=== PATIENT | female | born 1980 | race African-American/Black ===

== ENCOUNTER 2019-09-25 08:46 | Emergency (ER) | payer SELFPAY ==
[~2019-09-25] VITALS: Ht 167.6 cm; Wt 86.5 kg
[2019-09-25 08:46] VITALS: BP 156/65
--- NOTE | 2019-09-25 09:05 | PHYS DOC ---
Adult General Chief Complaint Chief Complaint: ANXIETY/PANIC ATTACK HPI HPI Patient is a 39-year-old female who presents with complaint of anxiety that started this morning at about 4:30 to 5 AM. She states that she has a long history of anxiety and has been on lorazepam in the past. Patient does admit to some chest tightness but states that she feels like that is because of how she is breathing in the anxiety. She denies any actual pain. Patient denies any suicidal or homicidal ideations. She denies any specific inciting factors.[] Review of Systems Review of Systems Constitutional: Denies fever or chills [] Respiratory: Denies cough or shortness of breath [] Cardiovascular: No additional information not addressed in HPI [] Integument: Denies rash or skin lesions [] Neurologic: Denies headache, focal weakness or sensory changes [] Psychiatric: Complains of anxiety. Denies suicidal and homicidal ideations.[] Physical Exam Physical Exam Constitutional: Well developed, well nourished, no acute distress, non-toxic appearance. [] Cardiovascular: Regular rate and rhythm[] Lungs & Thorax: Bilateral breath sounds clear to auscultation [] Neurologic: Alert and oriented X 3, no focal deficits noted. [] Psychologic: Appears anxious and tearful. Denies suicidal ideation. [] EKG EKG [] Radiology/Procedures Radiology/Procedures [] Course & Med Decision Making Course & Med Decision Making Pertinent Labs and Imaging studies reviewed. (See chart for details) [] Dragon Disclaimer Dragon Disclaimer This electronic medical record was generated, in whole or in part, using a voice recognition dictation system. Departure Departure: Impression: Primary Impression: Anxiety Disposition: 07 AGAINST MEDICAL ADVICE (a medical screening examination has been performed and patient elects not to pay for treatment) Condition: STABLE Referrals: PCP,UNKNOWN (PCP) PINEDA CLAY Jr. DO Sep 25, 2019 09:05
== END 2019-09-25 09:23 | disposition left against medical advice (07) ==
LOC: ER 08:46
DX: F41.9 Anxiety disorder, unspecified (principal)
CPT/HCPCS: 99284

== ENCOUNTER 2020-07-12 08:36 | Emergency (ER) | payer SELFPAY ==
[~2020-07-12] VITALS: Ht 167.6 cm; Wt 95.4 kg
[2020-07-12 08:36] VITALS: BP 102/75
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
--- NOTE | 2020-07-12 09:35 | RAD ---
PROCEDURE: FOOT LEFT 3V, KNEE LEFT 3V STUDY DATE: 07/12/2020 CLINICAL INDICATION / HISTORY: Left knee pain after injury. TECHNIQUE: AP, lateral, and oblique views of the left knee. COMPARISON: None FINDINGS: The osseous structures are intact. The articular surfaces are smooth. The joint space is maintained. No intra-articular loose bodies. The alignment is within normal limits. The soft tissues are unremarkable. No obvious joint effusion. No radio-opaque foreign bodies are identified. IMPRESSION: No fracture or dislocation is identified. PROCEDURE: FOOT LEFT 3V, KNEE LEFT 3V STUDY DATE: 07/12/2020 CLINICAL INDICATION / HISTORY: Reason: injury / Spl. Instructions: / History: . TECHNIQUE: AP, lateral and oblique views of the left foot. COMPARISON: None FINDINGS: No fracture or dislocation is identified. The bone density is normal. There is some irregularity to the metadiaphyseal junctions of the proximal second through fourth metatarsals of uncertain significance. They could represent healing responses from prior fracture. The joint space widths are maintained, and there are no erosions to suggest an inflammatory arthropathy. There is soft tissue swelling over the dorsum of the left forefoot at the metatarsal mid shafts. No other soft tissue abnormality is seen. IMPRESSION: Soft tissue swelling on the dorsum of the left forefoot of uncertain etiology. Correlate with clinical history. There is mild irregularity of the proximal metadiaphyseal junction of the second through fourth digits that could reflect sequela of old injury. Correlate with clinical exam. If indicated, further imaging by CT MRI could be pursued. Alignment is anatomic. Electronically signed by: Yony Carlson MD (07/12/2020 9:33 AM) [id number]
[2020-07-12 10:14] LABS: U PREG PATIENT NEGATIVE (NEG)
--- NOTE | 2020-07-12 10:54 | RAD ---
CT scan of the left foot without contrast 07/12/2020 CLINICAL HISTORY: Left foot pain and swelling post injury. TECHNIQUE: Unenhanced, contiguous, 0.625 mm axial sections were obtained through the left foot. 2 mm reconstructed sagittal, axial and coronal images were obtained. One or more of the following individualized dose reduction techniques were utilized for this study: 1. Automated exposure control. 2. Adjustment of the mA and/or kV according to patient size. 3. Use of iterative reconstruction technique. FINDINGS: Comparison is made to radiographs of the left foot from earlier today. Acute comminuted fractures are seen involving the proximal metaphysis of the left second metatarsal and left third metatarsal. The fracture of the left second metatarsal extends to the second MTP joint. No fracture step-off is seen. The alignment of the fracture fragments is near-anatomic. There is associated soft tissue swelling, dorsally. A small bony density is seen on the dorsal surface of the proximal metaphysis of the left first metatarsal may represent an old fracture. No additional acute fracture is seen. IMPRESSION: Acute comminuted fractures are seen involving the left second and third proximal metatarsals as discussed above. Electronically signed by: Saw Gonzales MD (07/12/2020 10:51 AM) [id number]
[2020-07-12] MEDS ORDERED: HYDR-3165 PO (11:26)
== END 2020-07-12 12:11 | disposition home or self-care (01) ==
LOC: ER 08:36
DX: S92.322A Displaced fracture of second metatarsal bone, left foot, initial encounter for closed fracture (principal); S92.332A Displaced fracture of third metatarsal bone, left foot, initial encounter for closed fracture; X58.XXXA Exposure to other specified factors, initial encounter; Y93.9 Activity, unspecified; Y92.89 Other specified places as the place of occurrence of the external cause; Y99.8 Other external cause status
CPT/HCPCS: 29515; 73562; 73630; 73700; 81025; 96372; 99285; J3010

== ENCOUNTER 2020-09-25 15:13 | Emergency (ER) | payer SELFPAY ==
[~2020-09-25] VITALS: Ht 167.6 cm; Wt 90.9 kg
[~2020-09-25 15:13] MED LIST: HYDR-3165 PO
--- NOTE | 2020-09-25 15:58 | PHYS DOC ---
Past History Past Medical History: Anxiety, Depression (SUELLEN GARCIA APRN) Past Surgical History: (SUELLEN GARCIA APRN) Alcohol Use: Occasionally Drug Use: None (SUELLEN GARCIA APRN) Adult General Chief Complaint Chief Complaint: ALCOHOL INTOXICATION HPI HPI Patient is a 40-year-old female presents emergency department transported by EMS reporting that she has been unable to sleep for the past 4 days, has been hearing voices in her head to wake up when she does finally doze off stating the voices tell me to wake up someone is trying to kill me. Patient states she awakens and is very scared that there is someone trying to kill her however her fianc that she lives with reassures her there is nobody in the house are in the apartment complex where they live that is trying to kill her. The patient states she does not see anybody that is trying to kill her, denies visual hallucinations, but reports that she does hear voices in her head telling her not to sleep because someone is trying to kill her. Patient states that she has a history of suicidal ideation homicidal ideation but is not suicidal today. Patient states that she is supposed to take Topamax and Wellbutrin for her depression, anxiety, and sleep disorders, however has not taken them for several months. Patient states that she has been in rehab several times for her alcoholism and her depression stating her last visit was at [facility] unit several months ago. Patient states that she drinks vodka as her alcohol of choice, patient states that she last drank 2 shots last night at midnight. Patient denies any recent fever or chills, denies chest pains, denies chest palpitations, denies nausea, vomiting, diarrhea. Patient denies any other health illnesses or physical complaints. Patient denies being a cigarette smoker, denies illicit drug use, states the only thing she does is drink vodka. (SUELLEN GARCIA APRN) Review of Systems Review of Systems 14 body systems of review of systems have been reviewed. See HPI for pertinent positives and negative responses, otherwise all other systems are negative, nonpertinent or noncontributory. (SUELLEN GARCIA APRN) Current Medications Current Medications Current Medications Medications (Trade) Dose Ordered Sig/Annalisa Start Time Stop Time Status Last Admin Dose Admin Lorazepam (Ativan Inj) 1 mg 1X ONCE 09/25/20 15:45 09/25/20 15:46 UNV 09/25/20 15:57 1 MG Multivitamins/ Minerals 10 ml/ Folic Acid 1 mg/ Thiamine HCl 100 mg/Lactated Ringer's 1,011.3 ml @ 1,011.3 mls/hr 1X ONCE 09/25/20 15:45 09/25/20 16:44 UNV (SUELLEN GARCIA APRN) Allergies Allergies Allergies Coded Allergies Type Severity Reaction Last Updated Verified No Known Drug Allergies 09/25/19 No (SUELLEN GARCIA APRN) Physical Exam Physical Exam Constitutional: Well developed, well nourished, no acute distress, non-toxic appearance. Patient is tearful during exam. Patient remained calm and cooperative during physical examination. HENT: Normocephalic, atraumatic, bilateral external ears normal, oropharynx moist, no oral exudates, nose normal. [] Eyes: PERRLA, EOMI, conjunctiva erythematous, no discharge. [] Neck: Normal range of motion, no tenderness, supple, no stridor. [] Cardiovascular:Heart rate regular rhythm, no murmur [] Lungs & Thorax: Bilateral breath sounds clear to auscultation [] Abdomen: Bowel sounds normal, soft, no tenderness, no masses, no pulsatile masses. [] Skin: Warm, dry, no erythema, no rash. [] Back: No tenderness, no CVA tenderness. [] Extremities: No tenderness, no cyanosis, no clubbing, ROM intact, no edema. [] Neurologic: Alert and oriented X 3, normal motor function, normal sensory function, no focal deficits noted. [] Psychologic: Affect flat, normal mood, admits to auditory hallucinations, denies visual hallucinations. (SUELLEN GARCIA APRN) Current Patient Data Vital Signs Vital Signs Date Time Temp Pulse Resp B/P (MAP) Pulse Ox O2 Delivery O2 Flow Rate FiO2 09/25/20 15:36 98.4 125 24 129/50 (76) 96 Room Air Lab Results Laboratory Tests Test 09/25/20 15:48 09/25/20 15:58 White Blood Count 4.7 x10^3/uL Red Blood Count 4.50 x10^6/uL Hemoglobin 13.0 g/dL Hematocrit 39.3 % Mean Corpuscular Volume 87 fL Mean Corpuscular Hemoglobin 29 pg Mean Corpuscular Hemoglobin Concent 33 g/dL Red Cell Distribution Width 14.3 % Platelet Count 346 x10^3/uL Neutrophils (%) (Auto) 42 % Lymphocytes (%) (Auto) 49 % Monocytes (%) (Auto) 6 % Eosinophils (%) (Auto) 2 % Basophils (%) (Auto) 1 % Neutrophils # (Auto) 2.0 x10^3uL Lymphocytes # (Auto) 2.3 x10^3/uL Monocytes # (Auto) 0.3 x10^3/uL Eosinophils # (Auto) 0.1 x10^3/uL Basophils # (Auto) 0.0 x10^3/uL Sodium Level 139 mmol/L Potassium Level 4.0 mmol/L Chloride Level 103 mmol/L Carbon Dioxide Level 25 mmol/L Anion Gap 11 Blood Urea Nitrogen 12 mg/dL Creatinine 0.6 mg/dL Estimated GFR (Cockcroft-Gault) 133.3 BUN/Creatinine Ratio 20 Glucose Level 110 mg/dL Calcium Level 8.6 mg/dL Total Bilirubin 0.4 mg/dL Aspartate Amino Transf (AST/SGOT) 12 U/L Alanine Aminotransferase (ALT/SGPT) 36 U/L Alkaline Phosphatase 83 U/L Ammonia 22 mcmol/L Total Protein 7.4 g/dL Albumin 3.7 g/dL Albumin/Globulin Ratio 1.0 Amylase Level 47 U/L Salicylates Level < 2.8 mg/dL Salicylate Last Dose Date Unknown Salicylate Last Dose Time Unknown Acetaminophen Level < 2 mcg/mL Acetaminophen Last Dose Date Unknown Acetaminophen Last Dose Time Unknown Ethyl Alcohol Level 274 mg/dL Urine Collection Type Unknown Urine Color Yellow Urine Clarity Cloudy Urine pH 5.5 Urine Specific Henderson 1.025 Urine Protein Neg Urine Glucose (UA) Neg mg/dL Urine Ketones (Stick) Neg mg/dL Urine Blood Small Urine Nitrite Neg Urine Bilirubin Neg Urine Urobilinogen Dipstick 0.2 mg/dL Urine Leukocyte Esterase Neg Urine RBC Occ /HPF Urine WBC 0 /HPF Urine Squamous Epithelial Cells Occ /LPF Urine Amorphous Sediment Present /HPF Urine Bacteria 0 /HPF Urine Mucus Slight /LPF Urine Opiates Screen Neg Urine Methadone Screen Neg Urine Barbiturates Neg Urine Phencyclidine Screen Neg Urine Amphetamine/Methamphetamine Neg Urine Benzodiazepines Screen Neg Urine Cocaine Screen Neg Urine Cannabinoids Screen Neg Urine Ethyl Alcohol Pos Current Medications Medications (Trade) Dose Ordered Sig/Annalisa Route PRN Reason Start Time Stop Time Status Last Admin Dose Admin Folic Acid 1 mg/ Thiamine HCl 100 mg/Lactated Ringer's 1,011.3 ml @ 1,011.3 mls/hr 1X ONCE IV 09/25/20 16:15 09/25/20 17:14 DC 09/25/20 16:30 Lorazepam (Ativan Inj) 1 mg 1X ONCE IVP 09/25/20 15:45 09/25/20 16:05 DC 09/25/20 15:57 Multivitamins/ Calcium (Thera-M Plus) 1 tab 1X ONCE PO 09/25/20 16:15 09/25/20 16:16 DC 09/25/20 16:28 Laboratory Tests Test 09/25/20 15:48 09/25/20 15:58 White Blood Count 4.7 x10^3/uL Red Blood Count 4.50 x10^6/uL Hemoglobin 13.0 g/dL Hematocrit 39.3 % Mean Corpuscular Volume 87 fL Mean Corpuscular Hemoglobin 29 pg Mean Corpuscular Hemoglobin Concent 33 g/dL Red Cell Distribution Width 14.3 % Platelet Count 346 x10^3/uL Neutrophils (%) (Auto) 42 % Lymphocytes (%) (Auto) 49 % Monocytes (%) (Auto) 6 % Eosinophils (%) (Auto) 2 % Basophils (%) (Auto) 1 % Neutrophils # (Auto) 2.0 x10^3uL Lymphocytes # (Auto) 2.3 x10^3/uL Monocytes # (Auto) 0.3 x10^3/uL Eosinophils # (Auto) 0.1 x10^3/uL Basophils # (Auto) 0.0 x10^3/uL Sodium Level 139 mmol/L Potassium Level 4.0 mmol/L Chloride Level 103 mmol/L Carbon Dioxide Level 25 mmol/L Anion Gap 11 Blood Urea Nitrogen 12 mg/dL Creatinine 0.6 mg/dL Estimated GFR (Cockcroft-Gault) 133.3 BUN/Creatinine Ratio 20 Glucose Level 110 mg/dL Calcium Level 8.6 mg/dL Total Bilirubin 0.4 mg/dL Aspartate Amino Transf (AST/SGOT) 12 U/L Alanine Aminotransferase (ALT/SGPT) 36 U/L Alkaline Phosphatase 83 U/L Ammonia 22 mcmol/L Total Protein 7.4 g/dL Albumin 3.7 g/dL Albumin/Globulin Ratio 1.0 Amylase Level 47 U/L Salicylates Level < 2.8 mg/dL Salicylate Last Dose Date Unknown Salicylate Last Dose Time Unknown Acetaminophen Level < 2 mcg/mL Acetaminophen Last Dose Date Unknown Acetaminophen Last Dose Time Unknown Ethyl Alcohol Level 274 mg/dL Urine Collection Type Unknown Urine Color Yellow Urine Clarity Cloudy Urine pH 5.5 Urine Specific [place] 1.025 Urine Protein Neg Urine Glucose (UA) Neg mg/dL Urine Ketones (Stick) Neg mg/dL Urine Blood Small Urine Nitrite Neg Urine Bilirubin Neg Urine Urobilinogen Dipstick 0.2 mg/dL Urine Leukocyte Esterase Neg Urine RBC Occ /HPF Urine WBC 0 /HPF Urine Squamous Epithelial Cells Occ /LPF Urine Amorphous Sediment Present /HPF Urine Bacteria 0 /HPF Urine Mucus Slight /LPF Urine Opiates Screen Neg Urine Methadone Screen Neg Urine Barbiturates Neg Urine Phencyclidine Screen Neg Urine Amphetamine/Methamphetamine Neg Urine Benzodiazepines Screen Neg Urine Cocaine Screen Neg Urine Cannabinoids Screen Neg Urine Ethyl Alcohol Pos Current Medications Medications (Trade) Dose Ordered Sig/Annalisa Route PRN Reason Start Time Stop Time Status Last Admin Dose Admin Folic Acid 1 mg/ Thiamine HCl 100 mg/Lactated Ringer's 1,011.3 ml @ 1,011.3 mls/hr 1X ONCE IV 09/25/20 16:15 09/25/20 17:14 09/25/20 16:30 Lorazepam (Ativan Inj) 1 mg 1X ONCE IVP 09/25/20 15:45 09/25/20 16:05 DC 09/25/20 15:57 Multivitamins/ Calcium (Thera-M Plus) 1 tab 1X ONCE PO 09/25/20 16:15 09/25/20 16:16 DC 09/25/20 16:28 (SUELLEN GARCIA APRN) EKG EKG [] (SUELLEN GARCIA APRN) Radiology/Procedures Radiology/Procedures [] (SUELLEN GARCIA APRN) Heart Score Risk Factors: Risk Factors: DM, Current or recent (<one month) smoker, HTN, HLP, family history of CAD, obesity. Risk Scores: Risk Factors: DM, Current or recent (<one month) smoker, HTN, HLP, family history of CAD, obesity. (SUELLEN GARCIA APRN) Course & Med Decision Making Course & Med Decision Making Pertinent Labs and Imaging studies reviewed. (See chart for details) 40-year-old female presented emergency department with a history of alcoholism and depression stating that she has been awake for the past 4 days and unable to sleep is hearing voices in her head telling her people are trying to kill her and to stay awake. Patient was tearful but cooperative during physical exam, labs were ordered, banana bag LR IV was ordered, 1 mg IV lorazepam was ordered. Pending labs at this time. Lab results shows elevated blood alcohol level, patient sleeping at this time, awaiting PAT team evaluation. Patient spoke with PAT meat team member Nancy who recommended safety plan for patient, patient is pending an appointment with the [facility], patient does have a bed date on October 15 at [facility], patient will call for an appointment at the [facility] clinic this Monday. Reevaluated patient's mental status, patient continues to deny HI/SI, remains in a, cooperative mood, discussed PAT safety plan treatment with patient who gave verbal understanding of home instructions, return to ER precautions and concerns, patient discharged home without incident. (SUELLEN GARCIA APRN) Dragon Disclaimer Dragon Disclaimer This electronic medical record was generated, in whole or in part, using a voice recognition dictation system. (SUELLEN GARCIA APRN) Attending Co-Sign I oversaw on the above date of service of this patient and discussed the care with the [employer]. I agree with the findings, plan of care, and disposition as documented. (LOILTA YAÑEZ DO) Departure Departure: Impression: Primary Impression: ETOH abuse Additional Impressions: Auditory hallucinations Anxiety about health Disposition: 01 DC HOME SELF CARE/HOMELESS Condition: IMPROVED Referrals: PCP,NO (PCP) Additional Instructions: Please keep your mental health follow-up appointments, return to the emergency department for worsening symptoms or other concerns. Please follow the safety plan that you and Nancy from the PAT team discussed. EMERGENCY DEPARTMENT GENERAL DISCHARGE INSTRUCTIONS Thank you for coming to [facility] (ED) today and trusting us with you care. We trust that you had a positivie experience in our Emergency Department. If you wish to speak to the department management, you may call the director at [phone]. YOUR FOLLOW UP INSTRUCTIONS ARE FOLLOWS: 1. Do you have a private Doctor? If you do not have a private doctor, please ask for a resource list of physicians or clinics that may be able to assist you with follow up care. 2. The Emergency Physician has interpreted your x-rays. The X-Ray specialist will also review them. If there is a change in the findings, you will be notified in 48 hours when at all possible. 3. A lab test or culture has been done, your results will be reviewed and you will be notified if you need a change in treatment. ADDITIONAL INSTRUCTIONS AND INFORMATION: 1. Your care today has been supervised by a physician who is specially trained in emergency care. Many problems require more than one evaluation for a complete diagnosis and treatment. We recommend that you schedule your follow up appointment as recommended to ensure complete treatment of you illness or injury. If you are unable to obtain follow up care and continue to have a problem, or if your condition worsens, we recommend that you return to the ED. 2. We are not able to safely determine your condition over the phone nor are we able to give sound medical advice over the phone. For these safety reasons, if you call for medical advice we will ask you to come to the ED for further evaluation. 3. If you have any questions regarding these discharge instructions please call the ED at [phone]. SAFETY INFORMATION: In the interest of safety, wellness, and injury prevention; we encourage you to wear your sealbelt, if you smoke; quite smoking, and we encourage family to use a pro tective helmet for bicycling and other sporting events that present an increased risk for head injury. IF YOUR SYMPTOMS WORSEN OR NEW SYMPTOMS DEVELOP, OR YOU HAVE CONCERNS ABOUT YOUR CONDITION; OR IF YOUR CONDITION WORSENS WHILE YOU ARE WAITING FOR YOUR FOLLOW UP APPOINTMENT; EITHER CONTACT YOUR PRIMARY CARE DOCTOR, THE PHYSICIAN WHOSE NAME AND NUMBER YOU WERE GIVEN, OR RETURN TO THE ED IMMEDIATELY. Problem Qualifiers SUELLEN GARCIA APRN Sep 25, 2020 15:58 LOLITA YAÑEZ DO Sep 26, 2020 18:27
[2020-09-25 16:13] LABS: BASO % 1 % (0-3); EOS # 0.1 x10^3/uL (0.0-0.7); EOS % 2 % (0-3); HEMATOCRIT 39.3 % (36.0-47.0); LYMPH # 2.3 x10^3/uL (1.0-4.8); LYMPH % 49 % (24-48); MEAN CORPUSCULAR HEMOGLOBIN 29 pg (25-35); MEAN CORPUSCULAR HGB CONC 33 g/dL (31-37); MEAN CORPUSCULAR VOLUME 87 fL (79-100); MONO # 0.3 x10^3/uL (0.0-1.1); MONO % 6 % (0-9); NEUT % 42 % (31-73); PLATELET COUNT 346 x10^3/uL (140-400); RED CELL DISTRIBUTION WIDTH 14.3 % (11.5-14.5); WHITE BLOOD COUNT 4.7 x10^3/uL (4.0-11.0)
[2020-09-25] MEDS ORDERED: RINGERS LACTATED IV ONE (16:15)
[2020-09-25] MEDS ORDERED: THIAMINE IV ONE (16:15)
[2020-09-25] MEDS ORDERED: MULTIVITAMIN with MINERAL TABLET. PO ONE (16:15)
[2020-09-25] MEDS ORDERED: FOLIC ACID IV ONE (16:15)
[2020-09-25 16:29] LABS: CALCIUM 8.6 mg/dL (8.5-10.1); CREATININE 0.6 mg/dL (0.6-1.0); GFR 133.3
[2020-09-25 16:34] LABS: ALBUMIN 3.7 g/dL (3.4-5.0); TOTAL BILIRUBIN 0.4 mg/dL (0.2-1.0); TOTAL PROTEIN 7.4 g/dL (6.4-8.2)
[2020-09-25 16:36] LABS: ACETAMIN < 2 mcg/mL (10-30); SALIC < 2.8 mg/dL (2.8-20.0)
[2020-09-25 16:37] LABS: AMPHETAMINE/METHAMPHETAMINE NEG (NEG); BARBITURATES NEG (NEG); BENZODIAZEPINES NEG (NEG); CANNABINOIDS NEG (NEG); COCAINE NEG (NEG); METHADONE NEG (NEG); OPIATES NEG (NEG); PHENCYCLIDINE NEG (NEG)
[2020-09-25 16:50] LABS: BILIRUBIN,URINE NEG (NEG); CLARITY,URINE CLOUDY; COLOR,URINE YELLOW; GLUCOSE,URINE NEG (NEG)
[2020-09-25 16:51] LABS: AMORPHOUS SEDIMENT,UR PRESENT /HPF; BACTERIA,URINE 0 /HPF (0-FEW); NITRITE,URINE NEG (NEG); RBC,URINE OCC /HPF (0-2); SQUAMOUS EPITHELIAL CELL,UR OCC /LPF; UROBILINOGEN,URINE 0.2 mg/dL (0.2 mg/dL); WBC,URINE 0 /HPF (0-4)
[2020-09-25 21:20] VITALS: BP 95/58
== END 2020-09-25 22:15 | disposition home or self-care (01) ==
LOC: ER 15:13
DX: F10.10 Alcohol abuse, uncomplicated (principal); R44.0 Auditory hallucinations; F41.9 Anxiety disorder, unspecified; L53.9 Erythematous condition, unspecified; F32.9 Major depressive disorder, single episode, unspecified; Z98.890 Other specified postprocedural states
CPT/HCPCS: 36415; 80053; 80307; 80329; 81001; 82140; 82150; 85025; 96365; 96375; 99284; G0480; J2060; J7120

== ENCOUNTER 2021-01-13 23:07 | Emergency (ER) | payer SELFPAY ==
[~2021-01-13] VITALS: Ht 167.6 cm; Wt 90.9 kg
--- NOTE | 2021-01-13 23:15 | PHYS DOC ---
Past History Past Medical History: Alcoholism, Anxiety, Depression, Schizophrenia (REMBERTO KARIMI MD) Past Surgical History: (REMBERTO KARIMI MD) Smoking: Cigarettes Alcohol Use: Occasionally Drug Use: None, Marijuana (REMBERTO KARIMI MD) General Adult HPI: HPI: ".. Where is my phone ....god dammit.. I fucking need rehab,.. drinking too much.. " "Wheres my cell phone.. ".. "I came in here with my cell.. "some body took my cell phone.. it [phone]... who's got my damn cell phone..."...My phone is gone... Oh. .. My god... Wheres my fucking phone.."... Patient is a 40 year old female who presents with hx of police referral for intoxication. Pt. admits to drinking heavy. Pt. removed from her apt. and transported by paramedics to ED at the request of the police department. Patient does admit to alcohol abuse. Patient has past history of alcohol abuse, anxiety, depression, schizoaffective disorder, and non-compliance. The patient last evaluated here in September for similar episodes of alcohol intoxication, hearing voices and delusions. Patient is on multiple psychotropic meds. Patient follows at the counseling center. No recent travel outside the [place] area. No specific ill contacts. Patient admits to some thoughts of suicidal ideation but no specific plan. Patient denies any hallucination or delusions tonight.. (REMBERTO KARIMI MD) Review of Systems: Review of Systems: Constitutional: Denies fever or chills Eyes: Denies change in visual acuity HENT: Denies nasal congestion or sore throat Respiratory: Hx. of cough Cardiovascular: Denies chest pain or edema GI: Denies abdominal pain, nausea, vomiting, bloody stools or diarrhea : Denies dysuria Musculoskeletal: Denies back pain or joint pain Integument: Denies rash Neurologic: Denies headache, focal weakness or sensory changes Endocrine: Denies polyuria or polydipsia Lymphatic: Denies swollen glands Psychiatric: Complains of depression or anxiety. Some thoughts of suicidal ideation but no specific plan. No homicidal ideation. (REMBERTO KARIMI MD) Family History: Family History: Noncontributory to presentation (REMBERTO KARIMI MD) Current Medications: Current Meds: See nursing for home meds (REMBERTO KARIMI MD) Allergies: Allergies: Allergies Coded Allergies Type Severity Reaction Last Updated Verified No Known Drug Allergies 09/25/19 No (REMBERTO KARIMI MD) Physical Exam: PE: Constitutional: Patient appears to be acutely intoxicated, does have a smell of intoxicants-alcohol beverages on her breath] HENT: Normocephalic, atraumatic, bilateral external ears normal, oropharynx moist, no oral exudates, nose normal. Hair weave Eyes: PERRLA, EOMI, conjunctiva injected, no discharge. [] Neck: Normal range of motion, no tenderness, supple, no stridor. Old scar. Cardiovascular:Heart rate regular rhythm, no murmur [] Lungs & Thorax: Bilateral breath sounds equal apex with scattered wheezes on auscultation [] Abdomen: Bowel sounds normal, soft, no tenderness, no masses, no pulsatile masses. Obese. Mild distention. Skin: Warm, dry, no erythema, no rash. [] Back: No tenderness, no CVA tenderness. [] Extremities: No tenderness, no cyanosis, no clubbing, ROM intact, no edema. [] Neurologic: Alert and oriented X 3, moves all extremities on request, does have distal sensory, no focal deficits noted. [] DTRs +2 brachial and patella. Mild discoordination. Wide gait. Psychologic: Affect anxious, judgement obviously currently impaired (most likely from alcohol,)m mood varied from depressed to excited. Pt. does admit to suicidal ideation, but no current plan. (REMBERTO KARIMI MD) EKG: EKG: My interpretation EKG shows sinus rhythm at 77 bpm. There is a long QT interval of 420 ms and a QTC is 477 ms. No findings acute STEMI with contralateral changes. [] (REMBERTO KARIMI MD) EKG: Sinus rhythm, heart rate 75 bpm, borderline QT prolongation. No ST elevation depression, no ectopy, normal axis. (JOHNSON DRUMMOND MD) Radiology/Procedures: Radiology/Procedures: [][address] [address] IMAGING REPORT Signed PATIENT: VALERIA CAMACHO ACCOUNT: [id number] : 1980 LOCATION: ER AGE: 40 SEX: F EXAM STATUS: REG ER ORD. PHYSICIAN: REMBERTO KARIMI MD REASON: dyspnea PROCEDURE: PORTABLE CHEST 1V Study: XR CHEST 1V Indication: Dyspnea. Comparison: 06/05/2020 Findings: Unremarkable/unchanged cardiomediastinal silhouette and petey. No confluent infiltrate, pleural effusion or pneumothorax. Essentially unchanged aeration pattern of the lungs. Incidental note made of a cervical rib on the right. Impression: No acute radiographic abnormality of the chest. No relevant change from the 06/05/2020 comparison. Electronically signed by: EVETTE SANON MD (01/14/2021 12:12 AM) [facility] DICTATED AND SIGNED BY: EVETTE SANON MD DATE: 01/14/219 CC: REMBERTO KARIMI MD; PCP,NO ~MTH0 0 (REMBERTO KARIMI MD) Heart Score: C/O Chest Pain: N/A HEART Score for Chest Pain: HEART Score for Chest Pain Response (Comments) Value History Slighlty/Non-Suspicious 0 ECG Normal 0 Age < 45 0 Risk Factors 1 or 2 Risk Factors 1 Troponin < Normal Limit 0 Total 1 Risk Factors: Risk Factors: DM, Current or recent (<one month) smoker, HTN, HLP, family history of CAD, obesity. Risk Scores: Score 0 - 3: 2.5% MACE over next 6 weeks - Discharge Home Score 4 - 6: 20.3% MACE over next 6 weeks - Admit for Clinical Observation Score 7 - 10: 72.7% MACE over next 6 weeks - Early Invasive Strategies (REMBERTO KARIMI MD) Course & Med Decision Making: Course & Med Decision Making Pertinent Labs and Imaging studies reviewed. (See chart for details) See PAT evaluation: No beds currently available until after 08 :00 at [facility]. (There are beds available but no one to process the patient at this time.) Pt. sleeping 0230 hrs. Rapid Covid is negative At 0300 pt vomiting.. At 0430 hrs Sleeping again. At 0530 hrs. Sleeping. Endorsed to Dr. Drummond at shift change. Impression: 1. Alcohol abuse= 362 2. Hx.Anxiety 3. Hx. Depression 4. Hx.Schizoaffective disorder [] (REMBERTO KARIMI MD) Course & Med Decision Making Accepted care at shift change, pending detox placement. Patient woke up complaining of substernal chest pain, EKG unchanged from previous 8 hours ago. (JOHNSON DRUMMOND MD) Dragon Disclaimer: Dragon Disclaimer: This electronic medical record was generated, in whole or in part, using a voice recognition dictation system. (REMBERTO KARIMI MD) Departure Departure: Impression: Primary Impression: ETOH abuse Disposition: HOME / SELF CARE / HOMELESS Condition: STABLE Referrals: PCP,CRISSY (PCP) Patient Instructions: Alcohol Problems Scripts Chlordiazepoxide Hcl (CHLORDIAZEPOXIDE HCL) 25 Mg Capsule 25 MG PO UD for etoh withdrawal for 4 Days, #15 CAP Day 1: 50mg q6h Day 2: 25mg q6h Day 3: 25mg q12h Day 4: 25mg at night Prov: JOHNSON DRUMMOND MD 01/14/21 Dragon Disclaimer This chart was dictated in whole or in part using Voice Recognition software in a busy, high-work load, and often noisy Emergency Department environment. It may contain unintended and wholly unrecognized errors or omissions. (REMBERTO KARIMI MD) Dragon Disclaimer This chart was dictated in whole or in part using Voice Recognition software in a busy, high-work load, and often noisy Emergency Department environment. It may contain unintended and wholly unrecognized errors or omissions. (REMBERTO KARIMI MD) REMBERTO KARIMI MD Jan 13, 2021 23:15 JOHNSON DRUMMOND MD Jan 14, 2021 07:06
[2021-01-13] MEDS ORDERED: IV RINGERS SOLUTION,LACTATED 1,000 ML IV SCH (23:30)
[2021-01-13 23:39] VITALS: BP 112/58
[2021-01-13 23:44] LABS: BASO % 1 % (0-3); EOS # 0.1 x10^3/uL (0.0-0.7); EOS % 1 % (0-3); HEMOGLOBIN 12.2 g/dL (12.0-15.5); LYMPH # 2.9 x10^3/uL (1.0-4.8); LYMPH % 38 % (24-48); MEAN CORPUSCULAR HEMOGLOBIN 28 pg (25-35); MEAN CORPUSCULAR HGB CONC 33 g/dL (31-37); MEAN CORPUSCULAR VOLUME 84 fL (79-100); MONO # 0.4 x10^3/uL (0.0-1.1); MONO % 5 % (0-9); NEUT # 4.3 x10^3uL (1.8-7.7); NEUT % 56 % (31-73); PLATELET COUNT 324 x10^3/uL (140-400); RED CELL DISTRIBUTION WIDTH 15.2 % (11.5-14.5); WHITE BLOOD COUNT 7.6 x10^3/uL (4.0-11.0)
[2021-01-13 23:52] LABS: CALCIUM 8.6 mg/dL (8.5-10.1); CREATININE 0.5 mg/dL (0.6-1.0); GFR 164.5; POTASSIUM 3.7 mmol/L (3.5-5.1)
[2021-01-13 23:58] LABS: BARBITURATES NEG (NEG); BENZODIAZEPINES NEG (NEG); CANNABINOIDS NEG (NEG); COCAINE NEG (NEG); METHADONE NEG (NEG); OPIATES NEG (NEG); PHENCYCLIDINE NEG (NEG)
[2021-01-14 00:01] LABS: AMPHETAMINE/METHAMPHETAMINE NEG (NEG)
[2021-01-14 00:02] LABS: ETHANOL 362 mg/dL (0-10); SALIC < 2.8 mg/dL (2.8-20.0)
[2021-01-14 00:04] LABS: ALBUMIN 3.5 g/dL (3.4-5.0); DIRECT BILIRUBIN 0.2 mg/dL (0.0-0.2); MAGNESIUM 2.1 mg/dL (1.8-2.4); TOTAL BILIRUBIN 0.5 mg/dL (0.2-1.0); TOTAL PROTEIN 7.3 g/dL (6.4-8.2)
--- NOTE | 2021-01-14 00:14 | RAD ---
Study: XR CHEST 1V Indication: Dyspnea. Comparison: 06/05/2020 Findings: Unremarkable/unchanged cardiomediastinal silhouette and petey. No confluent infiltrate, pleural effusi on or pneumothorax. Essentially unchanged aeration pattern of the lungs. Incidental note made of a cervical rib on the right. Impression: No acute radiographic abnormality of the chest. No relevant change from the 06/05/2020 comparison. Electronically signed by: EVETTE SANON MD (01/14/2021 12:12 AM) [facility]
[2021-01-14 00:15] LABS: BACTERIA,URINE 0 /HPF (0-FEW); BILIRUBIN,URINE NEG (NEG); CLARITY,URINE CLEAR; COLOR,URINE COLORLESS; GLUCOSE,URINE NEG (NEG); NITRITE,URINE NEG (NEG); RBC,URINE 0 /HPF (0-2); SQUAMOUS EPITHELIAL CELL,UR OCC /LPF; UROBILINOGEN,URINE 0.2 mg/dL (0.2 mg/dL); WBC,URINE 0 /HPF (0-4)
[2021-01-14 00:23] LABS: ACETAMIN < 2.0 mcg/mL (10-30)
--- NOTE | 2021-01-14 04:08 | EKG ---
[facility] ED [facility] [address] [place] [id number] Test Date: 2021-01-13 Test Time: 23:41:22 Pat Name: VALERIA CAMACHO Department: Room: Gender: F Utilization Review Specialist: KASSIDY : 1980 Requested By: REMBERTO KARIMI Order Number: [id number] Reading MD: Measurements Intervals [place] Rate: 77 P: 43 AR: 176 QRS: 52 QRSD: 84 T: 44 QT: 420 QTc: 477 Interpretive Statements SINUS RHYTHM PROLONGED QT NO SPECIFIC ECG ABNORMALITIES RI6.02 No previous ECG available for comparison
--- NOTE | 2021-01-14 07:40 | EKG ---
[address] [address] Test Date: 2021-01-14 Test Time: 07:34:50 Pat Name: VALERIA CAMACHO Department: Room: Gender: F Able Bodied Tankerman: BERTHA : 1980 Requested By: JOHNSON DRUMMOND Order Number: [id number] Reading MD: Measurements Intervals [place] Rate: 75 P: 56 MS: 170 QRS: 48 QRSD: 84 T: 34 QT: 426 QTc: 479 Interpretive Statements SINUS RHYTHM PROLONGED QT NO SPECIFIC ECG ABNORMALITIES RI6.02 No previous ECG available for comparison
[2021-01-14] MEDS ORDERED: ASPIRIN CHEWABLE 81 MG TABLET. PO ONE (07:45)
[2021-01-14] MEDS ORDERED: CHLO25CA9 PO (08:54)
== END 2021-01-14 11:20 | disposition home or self-care (01) ==
LOC: ER 23:07
DX: F10.20 Alcohol dependence, uncomplicated (principal); R45.851 Suicidal ideations; F17.210 Nicotine dependence, cigarettes, uncomplicated; F41.9 Anxiety disorder, unspecified; F32.9 Major depressive disorder, single episode, unspecified; F20.9 Schizophrenia, unspecified; Z20.822 Contact with and (suspected) exposure to COVID-19; Y90.8 Blood alcohol level of 240 mg/100 ml or more
CPT/HCPCS: 36415; 71045; 80048; 80076; 80307; 80329; 81001; 81025; 82550; 83690; 83735; 83880; 84443; 84484; 84702; 85025; 85610; 85730; 87426; 93005; 96360; 99285; G0480; J7120; U0003; C9803; U0005

== ENCOUNTER 2021-04-28 02:48 | Emergency (ER) | payer SELFPAY ==
[~2021-04-28] VITALS: Ht 167.6 cm; Wt 90.9 kg
[~2021-04-28 02:48] MED LIST changes: +CHLO25CA9 PO
[2021-04-28 03:26] LABS: BASO # 0.1 x10^3/uL (0.0-0.2); BASO % 1 % (0-3); EOS # 0.2 x10^3/uL (0.0-0.7); EOS % 2 % (0-3); HEMATOCRIT 34.9 % (36.0-47.0); HEMOGLOBIN 11.5 g/dL (12.0-15.5); LYMPH # 3.4 x10^3/uL (1.0-4.8); LYMPH % 35 % (24-48); MEAN CORPUSCULAR HEMOGLOBIN 29 pg (25-35); MEAN CORPUSCULAR HGB CONC 33 g/dL (31-37); MEAN CORPUSCULAR VOLUME 87 fL (79-100); MONO # 0.6 x10^3/uL (0.0-1.1); MONO % 6 % (0-9); NEUT # 5.4 x10^3uL (1.8-7.7); NEUT % 56 % (31-73); PLATELET COUNT 293 x10^3/uL (140-400); RED BLOOD COUNT 4.03 x10^6/uL (3.50-5.40); RED CELL DISTRIBUTION WIDTH 17.3 % (11.5-14.5); WHITE BLOOD COUNT 9.6 x10^3/uL (4.0-11.0)
[2021-04-28 03:40] LABS: ALBUMIN 3.4 g/dL (3.4-5.0); ALBUMIN/GLOBULIN RATIO 0.9 (1.0-1.7); CALCIUM 8.2 mg/dL (8.5-10.1); CREATININE 0.5 mg/dL (0.6-1.0); GFR 164.5; TOTAL BILIRUBIN 0.5 mg/dL (0.2-1.0); TOTAL PROTEIN 7.2 g/dL (6.4-8.2)
[2021-04-28 03:40] LABS: BARBITURATES NEG (NEG); BENZODIAZEPINES POS (NEG); CANNABINOIDS NEG (NEG); COCAINE NEG (NEG); METHADONE NEG (NEG); OPIATES NEG (NEG); PHENCYCLIDINE NEG (NEG)
[2021-04-28 03:42] LABS: POTASSIUM 2.8 mmol/L (3.5-5.1)
--- NOTE | 2021-04-28 03:42 | PHYS DOC ---
Past History Past Medical History: Alcoholism, Anxiety, Depression, Schizophrenia Past Surgical History: Smoking: Cigarettes Alcohol Use: Occasionally Drug Use: None, Marijuana General Adult EDM: Chief Complaint: OVERDOSE HPI: HPI: 40-year-old female was brought in by EMS for a reported overdose, the police officers had found the patient walking on the side of the road and the passerby had flagged down the police to state that she had apparently overdosed on hydroxyzine tablets, the patient had a bottle of hydroxyzine tablets of roughly 60-90 quantity and she reported taking 30 of these tablets, patient also endorsed drinking alcohol, she is intoxicated on arrival and cannot provide a detailed history, denies any drug use, she does have prescriptions with her for Ativan and Librium, history of prior psychiatric evaluations, no physical symptoms at this time Review of Systems: Review of Systems: Review of systems unobtainable given the patient's level of intoxication Current Medications: Current Meds: Patient has prescriptions for Librium, Atarax, Ativan Allergies: Allergies: Allergies Coded Allergies Type Severity Reaction Last Updated Verified No Known Drug Allergies 09/25/19 No Physical Exam: PE: Gen-no acute distress however she is intoxicated on arrival Head- normocephalic/atraumatic ENT: atraumatic, oropharynx clear neck: Supple, full range of motion, strength, no rigidity, no JVD lungs: No distress, speaks in full sentences cardiovascular: Regular rate, no JVD, peripheral circulation intact in all extremities abdomen: atraumatic, nondistended musculoskeletal: Full range of motion and strength in all extremities, atraumatic skin: Intact, no rashes neurologic: Intoxicated however the patient has no apparent acute focal neurologic deficits or abnormal movements psych: No active suicidal or homicidal thoughts at this time, patient intoxicated, cannot get a complete psychiatric exam Current Patient Data: Labs: Laboratory Tests Test 04/28/21 02:55 White Blood Count 9.6 x10^3/uL (4.0-11.0) Red Blood Count 4.03 x10^6/uL (3.50-5.40) Hemoglobin 11.5 g/dL (12.0-15.5) L Hematocrit 34.9 % (36.0-47.0) L Mean Corpuscular Volume 87 fL (79-100) Mean Corpuscular Hemoglobin 29 pg (25-35) Mean Corpuscular Hemoglobin Concent 33 g/dL (31-37) Red Cell Distribution Width 17.3 % (11.5-14.5) H Platelet Count 293 x10^3/uL (140-400) Neutrophils (%) (Auto) 56 % (31-73) Lymphocytes (%) (Auto) 35 % (24-48) Monocytes (%) (Auto) 6 % (0-9) Eosinophils (%) (Auto) 2 % (0-3) Basophils (%) (Auto) 1 % (0-3) Neutrophils # (Auto) 5.4 x10^3uL (1.8-7.7) Lymphocytes # (Auto) 3.4 x10^3/uL (1.0-4.8) Monocytes # (Auto) 0.6 x10^3/uL (0.0-1.1) Eosinophils # (Auto) 0.2 x10^3/uL (0.0-0.7) Basophils # (Auto) 0.1 x10^3/uL (0.0-0.2) EKG: EKG: [] Twelve-lead EKG was performed on arrival to the ER at 3:10 AM: Normal sinus rhythm, rate is 68, the patient has a nonischemic appearing EKG the QT interval is slightly prolonged at 482 ms Radiology/Procedures: Radiology/Procedures: [] Heart Score: C/O Chest Pain: No Risk Factors: Risk Factors: DM, Current or recent (<one month) smoker, HTN, HLP, family history of CAD, obesity. Risk Scores: Score 0 - 3: 2.5% MACE over next 6 weeks - Discharge Home Score 4 - 6: 20.3% MACE over next 6 weeks - Admit for Clinical Observation Score 7 - 10: 72.7% MACE over next 6 weeks - Early Invasive Strategies Course & Med Decision Making: Course & Med Decision Making Pertinent Labs and Imaging studies reviewed. (See chart for details) [] 40-year-old female with history of alcohol abuse, drug abuse and likely psychiatric history was brought into the emergency department after reported overdose of hydroxyzine tablets, on arrival the patient does appear intoxicated but is protecting airway, I am concerned about a possible aspiration with giving her activated charcoal so we will monitor the patient, will get medical clearance labs, EKG is normal appearing, my suspicion for a true overdose of a antihistamine type medicine like hydroxyzine is less likely, no signs of any mydriasis, will consult poison control for recommendations, will likely need to observe the patient for a period of time and then once medically cleared will have the PAT team evaluate the patient for psychiatric placement Update at 4:46 AM: The patient has a prolonged QT interval on her EKG as well as low potassium and for these reasons I believe that the patient should be medically admitted to the hospital, I did discuss the case with our hospitalist Dr. Walker, he is okay admitting the patient to [facility] as there is no available ICU at this facility, should the patient's condition deteriorate this would be a more ideal higher level of care Sarah Disclaimer: Sarah Disclaimer: This electronic medical record was generated, in whole or in part, using a voice recognition dictation system. Departure Departure: Impression: Primary Impression: Hydroxyzine overdose Qualified Codes: T43.594A - Poisoning by other antipsychotics and neuroleptics, undetermined, initial encounter Disposition: ADMITTED INPATIENT Referrals: PCP,CRISSY (PCP) YOBANI BERNAL MD Apr 28, 2021 03:42
[2021-04-28 03:43] LABS: ACETAMIN < 2.0 mcg/mL (10-30); ETHANOL 258 mg/dL (0-10); SALIC < 2.8 mg/dL (2.8-20.0)
[2021-04-28 03:45] LABS: AMPHETAMINE/METHAMPHETAMINE NEG (NEG)
[2021-04-28 03:56] LABS: BACTERIA,URINE 0 /HPF (0-FEW); BILIRUBIN,URINE NEG (NEG); CLARITY,URINE CLEAR; COLOR,URINE YELLOW; GLUCOSE,URINE NEG (NEG); NITRITE,URINE NEG (NEG); RBC,URINE 0 /HPF (0-2); SQUAMOUS EPITHELIAL CELL,UR FEW /LPF; UROBILINOGEN,URINE 0.2 mg/dL (0.2 mg/dL); WBC,URINE RARE /HPF (0-4)
[2021-04-28 03:57] LABS: U PREG PATIENT NEGATIVE (NEG)
[2021-04-28] MEDS ORDERED: CHARCOAL/SORBITOL 25 GM/120 ML SUSPENSION. PO ONE (04:00)
[2021-04-28] MEDS ORDERED: IV NORMAL SALINE 1,000ML 1,000 ML IV ONE (04:00)
[2021-04-28] MEDS: POTASSIUM CHLORIDE 10MEQ 100 ML IV SCH ×2 (04:23→06:00)
--- NOTE | 2021-04-28 04:50 | EKG ---
[address] [address] Test Date: 2021-04-28 Test Time: 03:10:04 Pat Name: VALERIA CAMACHO Department: Room: Gender: F Office Analyst: KASSIDY : 1980 Requested By: YOBANI BERNAL Order Number: [id number] Reading MD: Measurements Intervals [place] Rate: 68 P: 59 IA: 170 QRS: 52 QRSD: 94 T: 31 QT: 482 QTc: 518 Interpretive Statements SINUS RHYTHM PROLONGED QT NO SPECIFIC ECG ABNORMALITIES RI6.02 No previous ECG available for comparison
[2021-04-28 08:57] LABS: CALCIUM 7.4 mg/dL (8.5-10.1); CREATININE 0.4 mg/dL (0.6-1.0); GFR 212.8
[2021-04-28 09:16] LABS: POTASSIUM 2.8 mmol/L (3.5-5.1)
[2021-04-28] MEDS ORDERED: POTASSIUM CHLORIDE 20 MEQ TABLET.ER. PO ONE (09:30)
--- NOTE | 2021-04-28 10:56 | EKG ---
[address] [address] Test Date: 2021-04-28 Test Time: 10:14:55 Pat Name: VALERIA CAMACHO Department: Room: Gender: F Life Coach: BERTHA : 1980 Requested By: CLAIRE DIAZ Order Number: [id number] Reading MD: Measurements Intervals [place] Rate: 69 P: 43 KS: 178 QRS: 27 QRSD: 86 T: 24 QT: 470 QTc: 505 Interpretive Statements SINUS RHYTHM PROLONGED QT NO SPECIFIC ECG ABNORMALITIES RI6.02 No previous ECG available for comparison
[2021-04-28] MEDS ORDERED: POTASSIUM BICARB 10 MEQ EFFERVESCENT TABLET. PEG ONE (12:00)
[2021-04-28] MEDS ORDERED: POTASSIUM CHLORIDE 20MEQ 100 ML IV ONE (13:00)
[2021-04-28 13:55] LABS: POTASSIUM 3.3 mmol/L (3.5-5.1)
--- NOTE | 2021-04-28 16:02 | EKG ---
[address] [address] Test Date: 2021-04-28 Test Time: 15:50:35 Pat Name: VALERIA CAMACHO Department: Room: Gender: F Agile Project Manager: BERTHA : 1980 Requested By: CLAIRE DIAZ Order Number: [id number] Reading MD: Measurements Intervals [place] Rate: 82 P: 34 AR: 182 QRS: 26 QRSD: 80 T: 22 QT: 428 QTc: 504 Interpretive Statements SINUS RHYTHM PROLONGED QT NO SPECIFIC ECG ABNORMALITIES RI6.02 No previous ECG available for comparison
[2021-04-28 16:07] VITALS: BP 121/72
== END 2021-04-28 16:16 | disposition admitted as inpatient to this hospital (09) ==
LOC: ER 02:48
DX: T43.591A Poisoning by other antipsychotics and neuroleptics, accidental (unintentional), initial encounter (principal); F10.20 Alcohol dependence, uncomplicated; F41.9 Anxiety disorder, unspecified; F32.9 Major depressive disorder, single episode, unspecified; F20.9 Schizophrenia, unspecified; F17.210 Nicotine dependence, cigarettes, uncomplicated; Z20.822 Contact with and (suspected) exposure to COVID-19; Y92.89 Other specified places as the place of occurrence of the external cause; Y90.9 Presence of alcohol in blood, level not specified
CPT/HCPCS: 36415; 80048; 80053; 80307; 80329; 81001; 81025; 83690; 83735; 84132; 84443; 85025; 87426; 93005; 96360; 96361; 99285; G0480; J3480; J7030; U0003

== ENCOUNTER 2021-09-06 09:36 | Emergency (ER) | payer OTHER ==
[~2021-09-06] VITALS: Ht 167.6 cm; Wt 96.0 kg
[2021-09-06 09:48] VITALS: BP 138/98
[2021-09-06] MEDS ORDERED: AMOX1TAB61 PO ×2 (10:03→10:50)
--- NOTE | 2021-09-06 10:03 | PHYS DOC ---
Past History Past Medical History: Alcoholism, Anxiety, Depression, Schizophrenia Additional Past Medical Histor: unk Past Surgical History: Smoking: Cigarettes Alcohol Use: Occasionally Drug Use: None, Marijuana General Adult EDM: Chief Complaint: EARACHE/EAR PAIN HPI: HPI: Patient is a 41-year-old female that presents today with bilateral ear pain and throat pain. Patient states pain started of last week, she states she feels a fullness feeling in her ears and feels like her eardrums are going to rupture due to the fullness, patient did instill some of her pets eardrops into her ear hoping that would help with the pain. Patient denies fever, chills, chest pain, or shortness of air. Patient did take some ibuprofen prior to arrival with the pain Review of Systems: Review of Systems: Constitutional: Denies fever or chills Eyes: Denies change in visual acuity HENT: Ear pain, sore throat, nasal congestion Respiratory: Denies cough or shortness of breath Cardiovascular: Denies chest pain or edema GI: Denies abdominal pain, nausea, vomiting, bloody stools or diarrhea : Denies dysuria Musculoskeletal: Denies back pain or joint pain Integument: Denies rash Neurologic: Denies headache, focal weakness or sensory changes Endocrine: Denies polyuria or polydipsia Lymphatic: Denies swollen glands Psychiatric: Denies depression or anxiety Allergies: Allergies: Allergies Coded Allergies Type Severity Reaction Last Updated Verified No Known Drug Allergies 09/06/21 No Physical Exam: PE: Constitutional: Well developed, well nourished, no acute distress, non-toxic appearance. [] HENT: Normocephalic, atraumatic, tympanic membrane on the left erythemic, right tympanic membrane is bulging, oropharynx is reddened, nares are reddened, tonsils are 1+ Eyes: PERRLA, EOMI, conjunctiva normal, no discharge. [] Neck: Normal range of motion, no tenderness, supple, no stridor. [] Cardiovascular:Heart rate regular rhythm, no murmur [] Lungs & Thorax: Bilateral breath sounds clear to auscultation [] Abdomen: Bowel sounds normal, soft, no tenderness, no masses, no pulsatile masses. [] Skin: Warm, dry, no erythema, no rash. [] Back: No tenderness, no CVA tenderness. [] Extremities: No tenderness, no cyanosis, no clubbing, ROM intact, no edema. [] Neurologic: Alert and oriented X 3, normal motor function, normal sensory function, no focal deficits noted. [] Psychologic: Affect normal, judgement normal, mood normal. [] Current Patient Data: Vital Signs: Vital Signs Date Time Temp Pulse Resp B/P (MAP) Pulse Ox O2 Delivery O2 Flow Rate FiO2 09/06/21 09:48 97.9 95 18 138/98 (111) 98 Room Air EKG: EKG: [] Radiology/Procedures: Radiology/Procedures: [] Heart Score: C/O Chest Pain: N/A Risk Factors: Risk Factors: DM, Current or recent (<one month) smoker, HTN, HLP, family history of CAD, obesity. Risk Scores: Score 0 - 3: 2.5% MACE over next 6 weeks - Discharge Home Score 4 - 6: 20.3% MACE over next 6 weeks - Admit for Clinical Observation Score 7 - 10: 72.7% MACE over next 6 weeks - Early Invasive Strategies Course & Med Decision Making: Course & Med Decision Making Pertinent Labs and Imaging studies reviewed. (See chart for details) Patient has otitis media on the left ear, patient instructed to take [id number] decongestant, Tylenol and/or ibuprofen as needed for pain or fever, do not instill Pat eardrops into your ear for ear pain Dragon Disclaimer: Dragon Disclaimer: This electronic medical record was generated, in whole or in part, using a voice recognition dictation system. Departure Departure: Impression: Primary Impression: Otitis media Qualified Codes: H66.90 - Otitis media, unspecified, unspecified ear Disposition: HOME / SELF CARE / HOMELESS Condition: STABLE Referrals: PCP,NO (PCP) Patient Instructions: Otitis Media, Adult Additional Instructions: Take Tylenol and/or ibuprofen as needed for pain or fever Mymu-gtc-[id number] decongestant for the next 24 to 48 hours regularly Augmentin take as directed Follow-up with your primary care physician in the next 5 to 7 days for further follow-up Scripts Amoxicillin/Potassium Clav (AUGMENTIN 875-125 TABLET) 1 Each Tablet 1 TAB PO BID for ear infection for 10 Days, #20 TAB 0 Refills Prov: WILL POST TANK CAR REPAIRER 09/06/21 WILL POST TANK CAR REPAIRER Sep 06, 2021 10:03
== END 2021-09-06 10:17 | disposition home or self-care (01) ==
LOC: ER 09:36
DX: H66.93 Otitis media, unspecified, bilateral (principal); F10.20 Alcohol dependence, uncomplicated; F41.9 Anxiety disorder, unspecified; F32.9 Major depressive disorder, single episode, unspecified; F20.9 Schizophrenia, unspecified; F17.210 Nicotine dependence, cigarettes, uncomplicated; Y90.9 Presence of alcohol in blood, level not specified
CPT/HCPCS: 99283

== ENCOUNTER 2021-09-21 07:47 | Emergency (ER) | payer SELFPAY ==
[~2021-09-21] VITALS: Ht 167.6 cm; Wt 96.0 kg
[~2021-09-21 07:47] MED LIST changes: +AMOX1TAB61 PO
[2021-09-21 07:56] VITALS: BP 140/96
[2021-09-21] MEDS ORDERED: LORazepam 1 MG TABLET PO ONE (08:45)
[2021-09-21] MEDS ORDERED: HYDR25TA PO (09:23)
--- NOTE | 2021-09-21 09:24 | PHYS DOC ---
Past History Past Medical History: Alcoholism, Anxiety, Depression, Schizophrenia Additional Past Medical Histor: alcohol abuse Past Surgical History: , Other Smoking: Cigarettes Alcohol Use: Heavy Drug Use: None, Marijuana General Adult EDM: Chief Complaint: ANXIETY/PANIC ATTACK HPI: HPI: 41-year-old female presents with anxiety. Patient has history of generalized anxiety. She has taken Ativan in the past but has not had any for several weeks. The patient has been drinking alcohol about every other day for the last week. Her last alcohol was 11 PM last night. She presents today because she does not want to drink anymore and she is very worried about withdrawal. This is making her anxious. She has not taken anything for anxiety and does not know what else to do. She is supposed to follow with the [facility] but has not been doing that. She also stopped her fluoxetine when she started drinking a week ago. Patient has no other significant symptoms at this time. Review of Systems: Review of Systems: Constitutional: Denies fever or chills Eyes: Denies change in visual acuity HENT: Denies nasal congestion or sore throat Respiratory: Denies cough or shortness of breath Cardiovascular: Denies chest pain or edema GI: Denies abdominal pain, nausea, vomiting, bloody stools or diarrhea : Denies dysuria Musculoskeletal: Denies back pain or joint pain Integument: Denies rash Neurologic: Denies headache, focal weakness or sensory changes Endocrine: Denies polyuria or polydipsia Lymphatic: Denies swollen glands Psychiatric: Anxiety Current Medications: Current Meds: Current Medications Medications (Trade) Dose Ordered Sig/Annalisa Start Time Stop Time Status Last Admin Dose Admin Lorazepam (Ativan) 2 mg 1X ONCE 09/21/21 08:45 09/21/21 08:46 DC 09/21/21 08:37 2 MG Allergies: Allergies: Allergies Coded Allergies Type Severity Reaction Last Updated Verified No Known Drug Allergies 09/06/21 No Physical Exam: PE: Constitutional: Well developed, well nourished, obese, no acute distress, non- toxic appearance. [] HENT: Normocephalic, atraumatic, bilateral external ears normal, oropharynx moist, no oral exudates, nose normal. [] Eyes: PERRLA, EOMI, conjunctiva normal, no discharge. [] Neck: Normal range of motion, no tenderness, supple, no stridor. [] Cardiovascular: Heart rate regular rhythm, no murmur [] Lungs & Thorax: Bilateral breath sounds clear to auscultation [] Abdomen: Bowel sounds normal, soft, no tenderness, no masses, no pulsatile masses. [] Skin: Warm, dry, no erythema, no rash. [] Back: No tenderness, no CVA tenderness. [] Extremities: No tenderness, no cyanosis, no clubbing, ROM intact, no edema. [] Neurologic: Alert and oriented X 3, normal motor function, normal sensory function, no focal deficits noted. [] Psychologic: Affect normal, judgement normal, mood anxious. [] Current Patient Data: Vital Signs: Vital Signs Date Time Temp Pulse Resp B/P (MAP) Pulse Ox O2 Delivery O2 Flow Rate FiO2 09/21/21 07:56 98.2 74 20 140/96 (111) 99 Room Air EKG: EKG: [] Radiology/Procedures: Radiology/Procedures: [] Heart Score: C/O Chest Pain: N/A Risk Factors: Risk Factors: DM, Current or recent (<one month) smoker, HTN, HLP, family history of CAD, obesity. Risk Scores: Score 0 - 3: 2.5% MACE over next 6 weeks - Discharge Home Score 4 - 6: 20.3% MACE over next 6 weeks - Admit for Clinical Observation Score 7 - 10: 72.7% MACE over next 6 weeks - Early Invasive Strategies Course & Med Decision Making: Course & Med Decision Making Pertinent Labs and Imaging studies reviewed. (See chart for details) I had a long conversation with the patient about her anxiety. She is very worried about withdrawal and I reassured her that she should not have complications of withdrawal since she is not a daily long-term drinker. Her alcohol consumption was also only about 9 hours ago. I will give her a single dose of Ativan p.o. in the ER for her anxiety. I advised that she restart her fluoxetine and stop drinking alcohol. She needs to [facility] with [facility]. I will discharge her with a prescription of hydroxyzine to use as needed for her anxiety. She is stable for discharge at this time. [] Dragon Disclaimer: Dragon Disclaimer: This electronic medical record was generated, in whole or in part, using a voice recognition dictation system. Departure Departure: Impression: Primary Impression: Anxiety about health Disposition: HOME / SELF CARE / HOMELESS Condition: STABLE Referrals: PCP,NO (PCP) Patient Instructions: Anxiety and Panic Attacks, [id number]-[id number] Scripts Hydroxyzine Hcl (HYDROXYZINE HCL) 25 Mg Tablet 1 TAB PO TID PRN for ANXIETY / AGITATION, #30 TAB Prov: CLAIRE DIAZ DO 09/21/21 CLAIRE DIAZ DO Sep 21, 2021 09:23
== END 2021-09-21 09:30 | disposition home or self-care (01) ==
LOC: ER 07:47
DX: F41.9 Anxiety disorder, unspecified (principal); F10.20 Alcohol dependence, uncomplicated; F32.9 Major depressive disorder, single episode, unspecified; F20.9 Schizophrenia, unspecified; F17.210 Nicotine dependence, cigarettes, uncomplicated; Y90.9 Presence of alcohol in blood, level not specified
CPT/HCPCS: 99283

== ENCOUNTER 2021-09-26 02:49 | Emergency (ER) | payer SELFPAY ==
[~2021-09-26] VITALS: Ht 167.6 cm; Wt 96.0 kg
[~2021-09-26 02:49] MED LIST changes: +HYDR25TA PO
[2021-09-26 02:50] VITALS: BP 157/101
[2021-09-26 04:14] LABS: BASO % 0 % (0-3); EOS # 0.2 x10^3/uL (0.0-0.7); EOS % 2 % (0-3); HEMATOCRIT 33.6 % (36.0-47.0); HEMOGLOBIN 10.9 g/dL (12.0-15.5); LYMPH # 3.2 x10^3/uL (1.0-4.8); LYMPH % 43 % (24-48); MEAN CORPUSCULAR HEMOGLOBIN 29 pg (25-35); MEAN CORPUSCULAR HGB CONC 33 g/dL (31-37); MEAN CORPUSCULAR VOLUME 88 fL (79-100); MONO # 0.7 x10^3/uL (0.0-1.1); MONO % 9 % (0-9); NEUT # 3.3 x10^3uL (1.8-7.7); NEUT % 45 % (31-73); PLATELET COUNT 304 x10^3/uL (140-400); RED BLOOD COUNT 3.83 x10^6/uL (3.50-5.40); RED CELL DISTRIBUTION WIDTH 15.7 % (11.5-14.5); WHITE BLOOD COUNT 7.4 x10^3/uL (4.0-11.0)
[2021-09-26 04:28] LABS: BARBITURATES NEG (NEG); BENZODIAZEPINES NEG (NEG); CANNABINOIDS NEG (NEG); COCAINE NEG (NEG); METHADONE NEG (NEG); OPIATES NEG (NEG); PHENCYCLIDINE NEG (NEG)
--- NOTE | 2021-09-26 04:29 | PHYS DOC ---
Past History Past Medical History: Alcoholism, Anxiety, Depression, Schizophrenia Additional Past Medical Histor: alcohol abuse Past Surgical History: Smoking: Cigarettes Alcohol Use: Heavy Drug Use: None, Marijuana General Adult EDM: Chief Complaint: HALLUCINATIONS AUDIBLE/VISUAL HPI: HPI: 41-year-old female presents with audible hallucinations and suicidal ideation. Patient admits to drinking some alcohol today but also states that she is feeling suicidal. She denies homicidal ideation. She has no other medical complaints at this time. Review of Systems: Review of Systems: Constitutional: Denies fever or chills Eyes: Denies change in visual acuity HENT: Denies nasal congestion or sore throat Respiratory: Denies cough or shortness of breath Cardiovascular: Denies chest pain or edema GI: Denies abdominal pain, nausea, vomiting, bloody stools or diarrhea : Denies dysuria Musculoskeletal: Denies back pain or joint pain Integument: Denies rash Neurologic: Denies headache, focal weakness or sensory changes Endocrine: Denies polyuria or polydipsia Lymphatic: Denies swollen glands Psychiatric: Depression, suicidal ideation. Allergies: Allergies: Allergies Coded Allergies Type Severity Reaction Last Updated Verified No Known Drug Allergies 09/06/21 No Physical Exam: PE: Constitutional: Well developed, well nourished, obese, no acute distress, non- toxic appearance. [] HENT: Normocephalic, atraumatic, bilateral external ears normal, oropharynx moist, no oral exudates, nose normal. [] Eyes: PERRLA, EOMI, conjunctiva normal, no discharge. [] Neck: Normal range of motion, no tenderness, supple, no stridor. [] Cardiovascular: Heart rate regular rhythm, no murmur [] Lungs & Thorax: Bilateral breath sounds clear to auscultation [] Abdomen: Bowel sounds normal, soft, no tenderness, no masses, no pulsatile masses. [] Skin: Warm, dry, no erythema, no rash. [] Back: No tenderness, no CVA tenderness. [] Extremities: No tenderness, no cyanosis, no clubbing, ROM intact, no edema. [] Neurologic: Alert and oriented X 3, normal motor function, normal sensory function, no focal deficits noted. [] Psychologic: Affect impulsive, judgement normal, mood depressed. [] Current Patient Data: Labs: Laboratory Tests Test 09/26/21 03:21 09/26/21 03:25 POC Urine HCG, Qualitative hcg negative (Negative) White Blood Count 7.4 x10^3/uL (4.0-11.0) Red Blood Count 3.83 x10^6/uL (3.50-5.40) Hemoglobin 10.9 g/dL (12.0-15.5) L Hematocrit 33.6 % (36.0-47.0) L Mean Corpuscular Volume 88 fL (79-100) Mean Corpuscular Hemoglobin 29 pg (25-35) Mean Corpuscular Hemoglobin Concent 33 g/dL (31-37) Red Cell Distribution Width 15.7 % (11.5-14.5) H Platelet Count 304 x10^3/uL (140-400) Neutrophils (%) (Auto) 45 % (31-73) Lymphocytes (%) (Auto) 43 % (24-48) Monocytes (%) (Auto) 9 % (0-9) Eosinophils (%) (Auto) 2 % (0-3) Basophils (%) (Auto) 0 % (0-3) Neutrophils # (Auto) 3.3 x10^3uL (1.8-7.7) Lymphocytes # (Auto) 3.2 x10^3/uL (1.0-4.8) Monocytes # (Auto) 0.7 x10^3/uL (0.0-1.1) Eosinophils # (Auto) 0.2 x10^3/uL (0.0-0.7) Basophils # (Auto) 0.0 x10^3/uL (0.0-0.2) Vital Signs: Vital Signs Date Time Temp Pulse Resp B/P (MAP) Pulse Ox O2 Delivery O2 Flow Rate FiO2 09/26/21 02:50 98.6 99 18 157/101 (119) 97 Room Air EKG: EKG: [] Radiology/Procedures: Radiology/Procedures: [] Heart Score: C/O Chest Pain: N/A Risk Factors: Risk Factors: DM, Current or recent (<one month) smoker, HTN, HLP, family history of CAD, obesity. Risk Scores: Score 0 - 3: 2.5% MACE over next 6 weeks - Discharge Home Score 4 - 6: 20.3% MACE over next 6 weeks - Admit for Clinical Observation Score 7 - 10: 72.7% MACE over next 6 weeks - Early Invasive Strategies Course & Med Decision Making: Course & Med Decision Making Pertinent Labs and Imaging studies reviewed. (See chart for details) The patient's alcohol was 246. Her rapid Covid is negative. The behavioral team has interviewed the patient and believe she would benefit from [facility] for detox and stabilization. The patient is willing to go there. I will write for Librium for her detox. She is stable for transfer to [facility] at this time. [] Dragon Disclaimer: Dragon Disclaimer: This electronic medical record was generated, in whole or in part, using a voice recognition dictation system. Departure Departure: Impression: Primary Impression: ETOH abuse Additional Impressions: Auditory hallucinations Suicidal ideation Disposition: 02 SHORT TERM HOSPITAL Condition: STABLE Referrals: PCP,CRISSY (PCP) Patient Instructions: Alcohol Intoxication, Xrvy-[id number]-Lqsj, Suicidal Feelings, How to Help Yourself Scripts Chlordiazepoxide Hcl (CHLORDIAZEPOXIDE HCL) 25 Mg Capsule 25 MG PO UD for alcohol withdrawal, #12 CAP 25mg TID 2 days, then 25mg BID 2 days, then 25mg daily for 2 days Prov: CLAIRE DIAZ DO 09/26/21 CLAIRE DIAZ DO Sep 26, 2021 04:29
[2021-09-26 04:32] LABS: CALCIUM 7.9 mg/dL (8.5-10.1); CREATININE 0.4 mg/dL (0.6-1.0); GFR 211.8; POTASSIUM 3.5 mmol/L (3.5-5.1)
[2021-09-26 04:34] LABS: BACTERIA,URINE FEW /HPF (0-FEW); BILIRUBIN,URINE NEG (NEG); CLARITY,URINE CLEAR; COLOR,URINE YELLOW; GLUCOSE,URINE NEG (NEG); NITRITE,URINE NEG (NEG); UROBILINOGEN,URINE 0.2 mg/dL (0.2 mg/dL)
[2021-09-26 04:35] LABS: ALBUMIN 3.1 g/dL (3.4-5.0); ALBUMIN/GLOBULIN RATIO 0.9 (1.0-1.7); TOTAL BILIRUBIN 0.3 mg/dL (0.2-1.0); TOTAL PROTEIN 6.5 g/dL (6.4-8.2)
[2021-09-26 04:35] LABS: AMPHETAMINE/METHAMPHETAMINE NEG (NEG); SQUAMOUS EPITHELIAL CELL,UR MANY /LPF
[2021-09-26 04:36] LABS: ACETAMIN < 2.0 mcg/mL (10-30); SALIC 0.9 mg/dL (2.8-20.0)
[2021-09-26] MEDS ORDERED: CHLO25CA9 PO (05:05)
[2021-09-26] MEDS ORDERED: LORazepam 1 MG TABLET PO ONE (06:00)
== END 2021-09-26 10:44 | disposition short-term general hospital (02) ==
LOC: ER 02:49
DX: R45.851 Suicidal ideations (principal); R44.0 Auditory hallucinations; Z20.822 Contact with and (suspected) exposure to COVID-19; F32.9 Major depressive disorder, single episode, unspecified; F41.9 Anxiety disorder, unspecified; F17.210 Nicotine dependence, cigarettes, uncomplicated
CPT/HCPCS: 36415; 80053; 80307; 80329; 81001; 81025; 85025; 87426; 99285; C9803; G0480; U0003